=== PATIENT | female | born 2000 ===

== ENCOUNTER 2023-10-30 05:30 | Inpatient (IN) | payer SELFPAY ==
[~2023-10-30] VITALS: Ht 160 cm; Wt 78.3 kg
[2023-10-30] VITALS (26 sets, daily range): BP systolic 71–120; BP diastolic 41–59; TEMP 100–101.7; O2SAT 98–100
[2023-10-30] MEDS ORDERED: HOME MED LIST COMPLETE! XX SCH ×2 (06:05→22:55)
[2023-10-30 06:21] LABS: HEMATOCRIT 36.9 % (36.0-47.0); HEMOGLOBIN 13.1 g/dl (12.0-15.5); MEAN CORPUSCULAR HEMOGLOBIN 31.1 pg (27.0-33.0); MEAN CORPUSCULAR HGB CONC 35.5 g/dl (32.0-36.5); MEAN CORPUSCULAR VOLUME 87.6 fl (80.0-96.0); PLATELET COUNT, AUTOMATED 149 10^3/uL (150-450); RED BLOOD COUNT 4.21 10^6/uL (4.00-5.40); WHITE BLOOD COUNT 16.2 10^3/uL (4.0-10.0)
[2023-10-30] MEDS ORDERED: OXYTOCIN DRIP 30 UNITS in IV 1 EA IV PRN (06:30)
[2023-10-30] MEDS ORDERED: TRANEXAMIC ACID INJection 1,000 MG in NS 100 ML IV PRN (06:30)
[2023-10-30] MEDS ORDERED: CARBOPROST TROMETHAMINE 250 MCG/ML AMP IM PRN (06:30)
[2023-10-30] MEDS ORDERED: METHYLERGONOVINE MALEATE 0.2MG/ML 1ML VIAL IM PRN (06:30)
[2023-10-30] MEDS ORDERED: LR 500 ML IV PRN (06:35)
[2023-10-30] MEDS ORDERED: ONDANSETRON 4MG 2ML VIAL IV PRN ×3 (06:35→16:55)
[2023-10-30] MEDS ORDERED: ePHEDrine SULFATE 25 MG/5 ML(5MG/ML) SYRINGE IVP PRN (06:35)
[2023-10-30] MEDS ORDERED: diphenhydrAMINE 50MG/ML VIAL IV PRN ×2 (06:35→16:55)
[2023-10-30] MEDS ORDERED: NALOXONE INJ 0.4MG/1ML VIAL IV PRN ×3 (06:35→16:55)
[2023-10-30] MEDS ORDERED: EPIDURAL/PCA KEYS XX PRN (06:35)
[2023-10-30] MEDS: PENICILLIN G POTASSIUM 5 MU IV 5 MU in D5W MINI-BAG PLUS 100 ML IV STA (06:48)
[2023-10-30] MEDS: LACTATED RINGER'S 1000 ML IV STA (06:48)
[2023-10-30 08:46] LABS: HIV 1&2 SCREEN NEGATIVE (NEGATIVE)
[2023-10-30] MEDS: PRENATAL VITAMINS CHEWABLE TABLET PO SCH (09:00)
[2023-10-30] MEDS: PEN G POT 3,000,000 UNIT/50 ML 3,000,000 UNIT in IV 1 EA IV SCH (10:56)
[2023-10-30] MEDS: FENTANYL/ROPIVACAINE/NACL BAG 100 ML EPIDURAL SCH (10:57)
[2023-10-30] MEDS: LR 1,000 ML IV SCH ×2 (10:57→22:56)
[2023-10-30] MEDS ORDERED: LIDOCAINE 2% W/EPINEPHRINE 20ML VIAL **PRES FREE As Ordered ONE (12:07)
[2023-10-30] MEDS ORDERED: OXYTOCIN 30UNITS IN 0.9% NaCl 500ML IV BAG As Ordered ONE (12:08)
[2023-10-30] MEDS: BICITRA 30ML SOLN UDC PO ONE (12:22)
[2023-10-30] MEDS ORDERED: ONDANSETRON 4MG 2ML VIAL As Ordered ONE (12:41)
[2023-10-30] MEDS ORDERED: KETOROLAC 60MG 2ML VIAL As Ordered ONE (12:41)
[2023-10-30] MEDS ORDERED: MORPHINE PRES-FREE INJ 10 MG/10 ML VIAL As Ordered ONE (12:41)
[2023-10-30] MEDS ORDERED: PHENYLephrine 500MCG 5ML (100MCG/ML) SYRINGE As Ordered ONE (12:55)
[2023-10-30 13:09] LABS: CORD GAS ABE V -0.6; CORD GAS HCO3 V 24.4 MMOL/L; CORD GAS O2 SAT V 64.1 %; CORD GAS PCO2 V 41.6 mmHg; CORD GAS PH V 7.387 UNITS; CORD GAS PO2 V 26.9 mmHg; CORD GAS SBC V 23.1 MMOL/L; CORD GAS TCO2 V 25.7 MMOL/L
[2023-10-30 13:24] LABS: CORD GAS ABE A 1.4; CORD GAS HCO3 A 29.5 MMOL/L; CORD GAS O2 SAT A 30.9 %; CORD GAS PCO2 A 61.3 mmHg; CORD GAS PH A 7.3 UNITS; CORD GAS PO2 A 16.6 mmHg; CORD GAS TCO2 A 31.4 MMOL/L
[2023-10-30] MEDS ORDERED: RHO(D) IMMUNE GLOBULIN/MALTOSE 500MCG(2500IU)/2.2ML VIAL (WINRHO) IM SCH (13:50)
[2023-10-30] MEDS: OXYTOCIN DRIP 30 UNITS in IV 1 EA IV SCH (13:54)
[2023-10-30 14:55] LABS: HEMATOCRIT 29.8 % (36.0-47.0); MEAN CORPUSCULAR HGB CONC 34.2 g/dl (32.0-36.5); MEAN CORPUSCULAR VOLUME 93.4 fl (80.0-96.0); PLATELET COUNT, AUTOMATED 149 10^3/uL (150-450); RED BLOOD COUNT 3.19 10^6/uL (4.00-5.40); WHITE BLOOD COUNT 19.5 10^3/uL (4.0-10.0)
[2023-10-30 15:05] LABS: INR 1.19; PARTIAL THROMBOPLASTIN TIME 23.4 SECONDS (24.8-34.2); PROTHROMBIN TIME 14.7 SECONDS (12.5-14.5)
[2023-10-30 15:12] LABS: HEMOGLOBIN 10.2 g/dl (12.0-15.5)
[2023-10-30] MEDS ORDERED: oxyCODONE 5MG TAB PO PRN (16:55)
[2023-10-30] MEDS ORDERED: METOCLOPRAMIDE INJ 10MG/2ML VIAL IV PRN ×2 (16:55)
[2023-10-30] MEDS ORDERED: **NOTE PATIENT COMMENT** MISC XX SCH (16:55)
[2023-10-30 17:49] LABS: HEMATOCRIT 27.8 % (36.0-47.0); HEMOGLOBIN 9.7 g/dl (12.0-15.5); MEAN CORPUSCULAR HEMOGLOBIN 31.7 pg (27.0-33.0); MEAN CORPUSCULAR HGB CONC 34.9 g/dl (32.0-36.5); MEAN CORPUSCULAR VOLUME 90.8 fl (80.0-96.0); PLATELET COUNT, AUTOMATED 130 10^3/uL (150-450); RED BLOOD COUNT 3.06 10^6/uL (4.00-5.40); WHITE BLOOD COUNT 15.8 10^3/uL (4.0-10.0)
[2023-10-30 18:09] LABS: INR 1.46; PARTIAL THROMBOPLASTIN TIME 29.7 SECONDS (24.8-34.2); PROTHROMBIN TIME 17.2 SECONDS (12.5-14.5)
[2023-10-30] MEDS ORDERED: OXYTOCIN INJ 10UNITS/ML 1ML VIAL As Ordered ONE (18:36)
[2023-10-30] MEDS ORDERED: ETOMIDATE INJ 20MG/10ML VIAL As Ordered ONE (18:39)
[2023-10-30] MEDS ORDERED: MIDAZOLAM INJ 2MG/2ML VIAL As Ordered ONE (18:56)
[2023-10-30] MEDS ORDERED: KETAMINE HCL 200MG/20ML VIAL As Ordered ONE (18:56)
[2023-10-30] MEDS: ceFAZolin 2 GM/D5W 50 ML IV BAG As Ordered ONE (19:05)
[2023-10-30] MEDS: CARBOPROST TROMETHAMINE 250 MCG/ML AMP As Ordered ONE (19:16)
[2023-10-30] MEDS ORDERED: SUGAMMADEX SODIUM 500 MG/5 ML VIAL (BRIDION) As Ordered ONE (19:28)
[2023-10-30] MEDS ORDERED: KETOROLAC 30 MG/ML 1ML VIAL IV SCH (20:00)
[2023-10-30 22:26] LABS: BASO % 0.1 % (0.0-1.0); LYMPH # 1.1 10^3/uL (1.5-5.0); LYMPH % 8.3 % (24.0-44.0); MEAN CORPUSCULAR HEMOGLOBIN 31.2 pg (27.0-33.0); MEAN CORPUSCULAR HGB CONC 35.1 g/dl (32.0-36.5); MEAN CORPUSCULAR VOLUME 88.8 fl (80.0-96.0); MONO # 1.4 10^3/uL (0.0-0.8); MONO % 11.3 % (2.0-8.0); NEUTROPHILS # 10.1 10^3/uL (1.5-8.5); NEUTROPHILS % 79.9 % (36.0-66.0); PLATELET COUNT, AUTOMATED 122 10^3/uL (150-450); RED BLOOD COUNT 2.15 10^6/uL (4.00-5.40); WHITE BLOOD COUNT 12.6 10^3/uL (4.0-10.0)
[2023-10-30] MEDS: NS 1,000 ML IV SCH (22:30)
[2023-10-30] MEDS: DOCUSATE SODIUM 100MG CAPSULE PO SCH (22:31)
[2023-10-30 22:33] LABS: HEMATOCRIT 19.1 % (36.0-47.0)
[2023-10-30 22:34] LABS: HEMOGLOBIN 6.7 g/dl (12.0-15.5)
[2023-10-30 22:39] LABS: INR 1.4; PARTIAL THROMBOPLASTIN TIME 29.2 SECONDS (24.8-34.2); PROTHROMBIN TIME 16.7 SECONDS (12.5-14.5)
[2023-10-30] MEDS ORDERED: MULTTAB20 PO (22:50)
[2023-10-30] MEDS ORDERED: CALC100T2 PO (22:50)
[2023-10-30] MEDS: SLF 3 ML SYR IV SCH (22:56)
[2023-10-30] MEDS: ceFAZolin SOD 2 GM in IV 1 EA IV ONE (22:56)
[2023-10-30 23:04] LABS: ALBUMIN 1.8 G/DL (3.2-5.2); ALKALINE PHOSPHATASE 44 U/L (46-116); ALT/SGPT 18 U/L (7.0-40); AST/SGOT 24 U/L (<34); BILIRUBIN,TOTAL 1.8 MG/DL (0.3-1.2); BLOOD UREA NITROGEN 12 MG/DL (9-23); CALCIUM LEVEL 6.2 MG/DL (8.5-10.1); CARBON DIOXIDE LEVEL 24 MMOL/L (20-31); CHLORIDE LEVEL 109 MMOL/L (98-107); CREATININE FOR GFR 0.67 MG/DL (0.55-1.30); GLOMERULAR FILTRATION RATE > 60.0 (>60); GLUCOSE, FASTING 111 MG/DL (60-100); MAGNESIUM LEVEL 1.1 MG/DL (1.8-2.4); POTASSIUM SERUM 3.6 MMOL/L (3.5-5.1); SODIUM LEVEL 140 MMOL/L (136-145); TOTAL PROTEIN 3.7 G/DL (5.7-8.2)
[2023-10-30] MEDS ORDERED: MAG SULF 1GM/100ML (MAG RUN) 1 GM in IV 1 EA IV ONE (23:25)
[2023-10-30] MEDS: MAGNESIUM OXIDE 400MG TAB (MAG-OX) PO ONE (23:37)
[2023-10-31] VITALS (19 sets, daily range): BP systolic 100–120; BP diastolic 50–64; TEMP 98.3–99.8; O2SAT 97–100
[2023-10-31] MEDS: ceFAZolin SOD 1 GM in D5W MINI-BAG PLUS 50 ML IV SCH (02:48)
[2023-10-31] MEDS: CALCIUM/VITAMIN D 500 MG TAB PO SCH (02:49)
[2023-10-31 05:00] LABS: HEMATOCRIT 21.2 % (36.0-47.0); HEMOGLOBIN 7.5 g/dl (12.0-15.5); MEAN CORPUSCULAR HEMOGLOBIN 31.1 pg (27.0-33.0); MEAN CORPUSCULAR HGB CONC 35.4 g/dl (32.0-36.5); RED BLOOD COUNT 2.41 10^6/uL (4.00-5.40); WHITE BLOOD COUNT 11.2 10^3/uL (4.0-10.0)
[2023-10-31] MEDS: ACETAMINOPHEN 500 MG TAB PO PRN (05:07)
[2023-10-31 05:14] LABS: ALBUMIN 1.6 G/DL (3.2-5.2); BLOOD UREA NITROGEN 10 MG/DL (9-23); CALCIUM LEVEL 6.1 MG/DL (8.5-10.1); CARBON DIOXIDE LEVEL 24 MMOL/L (20-31); CHLORIDE LEVEL 109 MMOL/L (98-107); CREATININE FOR GFR 0.55 MG/DL (0.55-1.30); GLOMERULAR FILTRATION RATE > 60.0 (>60); GLUCOSE, FASTING 101 MG/DL (60-100); MAGNESIUM LEVEL 1.2 MG/DL (1.8-2.4); PHOSPHORUS LEVEL 2.7 MG/DL (2.5-4.9); POTASSIUM SERUM 3.4 MMOL/L (3.5-5.1); SODIUM LEVEL 138 MMOL/L (136-145)
[2023-10-31 05:15] LABS: PLATELET COUNT, AUTOMATED 92 10^3/uL (150-450)
[2023-10-31] MEDS: POTASSIUM CHLORIDE 10MEQ SR TABLET PO ONE (06:17)
[2023-10-31] MEDS: MAG SULF 1GM/100ML (MAG RUN) 1 GM in IV 1 EA IV SCH (06:17)
[2023-10-31 12:07] LABS: HEMATOCRIT 21.7 % (36.0-47.0); HEMOGLOBIN 7.7 g/dl (12.0-15.5)
[2023-10-31] MEDS ORDERED: IBUPROFEN 800 MG TAB PO SCH (16:00)
[2023-11-01 00:02] VITALS: BP 118/61; O2SAT 98
[2023-11-01 06:00] VITALS: BP 109/62; O2SAT 100
[2023-11-01 06:35] LABS: HEMATOCRIT 21.3 % (36.0-47.0); HEMOGLOBIN 7.4 g/dl (12.0-15.5); MEAN CORPUSCULAR HEMOGLOBIN 31.4 pg (27.0-33.0); MEAN CORPUSCULAR HGB CONC 34.7 g/dl (32.0-36.5); MEAN CORPUSCULAR VOLUME 90.3 fl (80.0-96.0); PLATELET COUNT, AUTOMATED 117 10^3/uL (150-450); RED BLOOD COUNT 2.36 10^6/uL (4.00-5.40)
[2023-11-01] MEDS ORDERED: ACET-683 PO (06:42)
[2023-11-01] MEDS: MEASLES,MUMPS,RUBELLA VACCINE INJ (MMR-II) SC.IMMUN ONE (09:46)
[2023-11-01] MEDS: SIMETHICONE 80MG CHEW TAB PO PRN (12:34)
== END 2023-11-01 14:20 | disposition home or self-care (01) | DRG 540 ==
LOC: M LDO 05:30 → M LDI 05:35 → M ICU 20:31 → M OBS 10-31 08:59
PROVIDERS: ADMIT Obstetrics & Gynecology; ATTEND Obstetrics & Gynecology
PROC: 0UB10ZZ Excision of Left Ovary, Open Approach (ICD-10-PCS; 2023-10-30)
PROC: 0UQ90ZZ Repair Uterus, Open Approach (ICD-10-PCS; 2023-10-30)
PROC: 30233N1 Transfusion of Nonautologous Red Blood Cells into Peripheral Vein, Percutaneous Approach (ICD-10-PCS; 2023-10-30)
PROC: 30233R1 Transfusion of Nonautologous Platelets into Peripheral Vein, Percutaneous Approach (ICD-10-PCS; 2023-10-30)
PROC: 30233K1 Transfusion of Nonautologous Frozen Plasma into Peripheral Vein, Percutaneous Approach (ICD-10-PCS; 2023-10-30)
PROC: 10D00Z1 Extraction of Products of Conception, Low, Open Approach (ICD-10-PCS; principal; 2023-10-30 12:00)
DX: O62.0 Primary inadequate contractions (principal); D62 Acute posthemorrhagic anemia; O72.1 Other immediate postpartum hemorrhage; Z37.0 Single live birth; O48.0 Post-term pregnancy; O34.211 Maternal care for low transverse scar from previous cesarean delivery; O99.03 Anemia complicating the puerperium; R00.0 Tachycardia, unspecified; O94 Sequelae of complication of pregnancy, childbirth, and the puerperium; N83.202 Unspecified ovarian cyst, left side; O34.83 Maternal care for other abnormalities of pelvic organs, third trimester; Z3A.41 41 weeks gestation of pregnancy